=== PATIENT | male | born 1955 | race Caucasian/White ===

== ENCOUNTER 2020-12-12 09:58 | Day surgery (SDC) | payer MEDICAID ==
[2020-12-06 15:33] LABS: BASOPHILS # (AUTO) 0.1 X10'3 (0-0.2); BASOPHILS % (AUTO) 0.9 % (0-1); EOSINOPHILS # (AUTO) 0.6 X10'3 (0-0.9); EOSINOPHILS % (AUTO) 8.8 % (0-6); LYMPHOCYTES # (AUTO) 1.8 X10'3 (1.1-4.8); LYMPHOCYTES % (AUTO) 24.3 % (21-51); MEAN CORPUSCULAR HEMOGLOBIN 33.1 PG (27.0-31.0); MEAN CORPUSCULAR HGB CONC 34.7 g/dL (33.0-36.5); MEAN CORPUSCULAR VOLUME 95.3 FL (78-98); MEAN PLATELET VOLUME 6.9 FL (7.4-10.4); MONOCYTES # (AUTO) 0.7 X10'3 (0-0.9); MONOCYTES % (AUTO) 10.3 % (2-12); NEUTROPHILS % (AUTO) 55.7 % (42-75); PRE OP HEMATOCRIT 41.2 % (42.0-52.0); PRE OP HEMOGLOBIN 14.3 g/dL (14.0-17.9); PRE OP PLATELET COUNT 247 X10'3 (140-440); RED BLOOD COUNT 4.32 X10'6 (4.70-6.10); RED CELL DISTRIBUTION WIDTH 13.2 % (11.5-14.5)
[2020-12-06 15:37] LABS: ALBUMIN 3.3 G/DL (3.4-5.0); ALBUMIN/GLOBULIN RATIO 0.8 (1.1-1.5); ALKALINE PHOSPHATASE 89 IU/L (46-116); BLOOD UREA NITROGEN 15 MG/DL (7-18); BUN/CREATININE RATIO 17.4 (5.4-32.0); CALCIUM 8.3 MG/DL (8.5-10.1); CHLORIDE 103 MMOL/L (99-107); CREATININE 0.86 MG/DL (0.60-1.10); PRE OP ALT 26 U/L (30-65); PRE OP ANION GAP 8 (8-16); PRE OP AST 20 U/L (10-37); PRE OP BILIRUB, TOTAL 0.2 MG/DL (0.0-1.0); PRE OP GLUCOSE 91 MG/DL (70-104); PRE OP SODIUM 139 MMOL/L (135-145); TOTAL PROTEIN 7.4 G/DL (6.4-8.2); eGFR 90 ML/MIN
[2020-12-12] VITALS (12 sets, daily range): BP systolic 118–133; BP diastolic 71–81
[~2020-12-12] VITALS: Ht 193 cm; Wt 106.6 kg
[~2020-12-12 09:58] MED LIST: BENZ1TAB7 PO; BUSP10TA11 PO; CHOL100046 PO; CLOB30CR12 TOP; IBUP-1985 PO; MAG CITRATE; MAGN400C PO; PHEN97.22 PO; POLY17PO10 PO; RISP3TAB PO; SENN8.6T19 PO; VALA100031 PO; ZOC40T PO; ZOLP5TAB8 PO; ceFAZolin 2gm in dextrose, iso 50 ML IV ONE; famotidine 20mg tablet PO ONE; ringers solution, lacted 1,000 ML IV SCH
[2020-12-12] MEDS ORDERED: morphine 4 MG/ML inj SYRINge IV PRN (10:50)
[2020-12-12] MEDS ORDERED: hydrALAZINE 20mg/ml inj. IV PRN (10:50)
[2020-12-12] MEDS ORDERED: ondansetron/PF 4mg/2ml inj IV PRN (10:50)
[2020-12-12] MEDS ORDERED: ringers solution, lacted 1,000 ML IV SCH (10:50)
[2020-12-12] MEDS ORDERED: labetalol 20mg/4ml (5mg/ml) syringe IV PRN (10:50)
[2020-12-12] MEDS ORDERED: fentaNYL/PF 50MCG/1 ML 2ML syringe IV PRN ×2 (10:50)
[2020-12-12] MEDS ORDERED: morphine 2 MG/ML inj. syringe IV PRN (10:50)
[2020-12-12] MEDS ORDERED: BUPIVAcaine/PF 2.5 mg/ml (0.25%) 30ml vial ONE (11:51)
[2020-12-12] MEDS ORDERED: LIDOcaine 1% 30ml preserv. free vial ONE (11:52)
[2020-12-12] MEDS ORDERED: dexamethasone sod phosphate 10mg/ml inj ONE (12:01)
[2020-12-12] MEDS ORDERED: neostigmine methylsulfate 1 MG/ML 10ml vial ONE (12:01)
[2020-12-12] MEDS ORDERED: rocuronium 10mg/ml inj IV ONE ×2 (12:01→12:04)
[2020-12-12] MEDS ORDERED: sevoflurane 250ml liquid IH ONE (12:01)
[2020-12-12] MEDS ORDERED: glycopyrrolate 0.2mg/ml inj ONE (12:01)
[2020-12-12] MEDS ORDERED: ePHEDrine 50MG/ML INJ. ONE (12:01)
[2020-12-12] MEDS ORDERED: MIDAZolam 1 MG/ML 5ML VIAL ONE (12:03)
[2020-12-12] MEDS ORDERED: fentaNYL/PF 50MCG/1 ML 2ML syringe ONE ×2 (12:03→13:33)
[2020-12-12] MEDS ORDERED: propofol inj 20 ML IV ONE (12:04)
[2020-12-12] MEDS ORDERED: LIDOcaine 2% (20mg/ml) 5ml vial ONE (12:04)
[2020-12-12] MEDS ORDERED: ondansetron/PF 4mg/2ml inj ONE (12:05)
[2020-12-12] MEDS ORDERED: BUPIVAcaine/PF 2.5mg/ml (0.25%) 10ml vial ONE (13:59)
[2020-12-12] MEDS ORDERED: BUPIVACAINE liposomal/PF 13.3 MG/ML vial IM ONE (14:00)
--- NOTE | 2020-12-12 14:25 | NUR ---
PT ARRIVED TO RECOVERY VIA GURNEY ACCOMPANIED BY DR DURHAM-REPORT GIVEN, PT SLEEPY BUT AROUSABLE, VSS, PIV 20G TO LEFT HAND-LR RUNNING AT 50ML/HR, LAP SITES X3 TO LEFT ABD-CDI, ABD BINDER IN PLACE WELL, SCDS ON, VSS, DENIES PAIN.
[2020-12-12] MEDS ORDERED: oxyCODONE/APAP 5-325mg tablet PO PRN ×2 (14:30)
--- NOTE | 2020-12-12 16:45 | NUR ---
PT AWAKE, VSS, ABLE TO VOID LARGE AMOUNT IN URINAL, PAIN TOLERABLE-MOSTLY TIGHT D/T ABD BINDER, UP TO SIDE OF BED TO GET DRESSED-MOVING WELL, ABLE TO MAKE NEEDS KNOWN, PIV D/CD-CANULA INTACT, LAP SITES X 3-CDI, TOLERATING FLUIDS WELL, D/C INSTRUCTIONS GIVEN TO PT AND CAREGIVER-ALL QUESTIONS ANSWERED AND GIVEN PAIN MED SCRIPT WELL, TAKEN VIA W/C TO VEHICLE WITH ALL BELONGINGS, CAREGIVER GIVING RIDE HOME.
== END 2020-12-12 16:45 | disposition home or self-care (01) ==
LOC: PAS 09:58
PROVIDERS: ATTEND Surgery
DX: K43.0 Incisional hernia with obstruction, without gangrene (principal); K66.0 Peritoneal adhesions (postprocedural) (postinfection); F60.9 Personality disorder, unspecified; G40.909 Epilepsy, unspecified, not intractable, without status epilepticus; E66.9 Obesity, unspecified; Z68.28 Body mass index [BMI] 28.0-28.9, adult; Z20.822 Contact with and (suspected) exposure to COVID-19; Z79.899 Other long term (current) drug therapy; Z88.8 Allergy status to other drugs, medicaments and biological substances; Z90.49 Acquired absence of other specified parts of digestive tract; Z98.890 Other specified postprocedural states
CPT/HCPCS: 36415; 49655; 64488; 80053; 82948; 85025; 93005; C1781; C9290; J2001; J2250; J2405; J2704; J3010; J3490; J7120; S2900; U0003; U0005; Z7506; Z7508; Z7512; A4215; A4618; J1100; J2710

== ENCOUNTER → 2023-07-24 | Outpatient (CLI) | payer MEDICARE, MEDICAID ==
[~2023-07-24] MED LIST changes: -BENZ1TAB7 PO; +BENZ1TAB93 PO; -ceFAZolin 2gm in dextrose, iso 50 ML IV ONE; -famotidine 20mg tablet PO ONE; -ringers solution, lacted 1,000 ML IV SCH
== END | disposition home or self-care (01) ==
LOC: RAD 09:52
PROVIDERS: ATTEND Family Medicine
DX: M17.11 Unilateral primary osteoarthritis, right knee (principal); M79.604 Pain in right leg
CPT/HCPCS: 73564